=== PATIENT | female | born 1980 | race Caucasian/White ===

== ENCOUNTER 2024-09-26 10:40 | Observation (INO) | payer SELFPAY ==
[2024-09-26] VITALS (11 sets, daily range): BP systolic 92–168; BP diastolic 62–97; PULSE 65–130; RESP 15–20; TEMP 36.7–37.7; O2SAT 95–99; BMI 28.1; BMI 26.9
[2024-09-26 11:04] LABS: Glucose Urine UA Negative (Normal); Nitrate Urine Negative (Negative)
[2024-09-26 11:09] LABS: Add Urine Microscopic? YES; Universal Test for UA Present (0)
[2024-09-26 11:10] LABS: Specific Gravity, Urine 1.033 (1.005-1.030)
[2024-09-26] MEDS: diphenhydrAMINE 50 mg/mL SDV 1mL IVP (11:10)
[2024-09-26] MEDS: haloperidol inj 5 mg/mL INJ 1 mL IVP (11:13)
[2024-09-26 11:16] LABS: Hematocrit 53.9 % (36-47); Hemoglobin 18.40 g/dL (11.27-16.99); Mean Corpuscular HGB Conc 34.1 g/dL (30-55); Mean Corpuscular Hemoglobin 30.1 pg (27-33); Mean Corpuscular Volume 88.1 fl (85-98); Nucleated Red Blood Cells % 0 %; Platelet Count 259 10^3/cmm (157-399); Red Blood Count 6.12 10^6/uL (3.85-5.65); White Blood Count 16.78 10^3/uL (3.29-11.43)
--- NOTE | 2024-09-26 11:18 | ED_ITS ---
HPI - Nausea/Vomiting/Diarrhea 2 General: Chief complaint: Nausea/Vomiting/Diarrhea Stated complaint: nausea (4xdays) / hands went numb Time Seen by Provider: 09/26/24 11:01 History of Present Illness: HPI: Patient with history of frequent marijuana use, remote section, presenting to the department with complaint of nausea vomiting over the last 5 days. No fevers, sweats, chills. Patient states she has epigastric abdominal pain, lower abdominal pain also present mostly over the suprapubic region. The pain does not radiate to her back or chest. No UTI symptoms. Patient unable to manage symptoms at home so presented to the emergency department for control of her symptoms. Patient states that she had some carpal spasms as well that were bothersome to her just prior to arrival. REVIEW OF SYSTEMS: 10 systems reviewed and otherwise unrema rkable except for those noted in HPI. PHYSCIAL EXAM: Triage vital signs reviewed Gen: A&O NAD HEENT: NCAT, EOMI, not icteric. External ears normal. No rhinorrhea. Moist mucous membranes. Neck: Supple, full range of motion, no observable masses, No meningeal sign. Lungs: No Respiratory distress. CV: Tachycardic, no edema. Abdomen: Soft, nondistended, No rebound tenderness. Epigastric tenderness to palpation, mild nonspecific tenderness elsewhere, no CVA tenderness. MSK: No joint swelling, no redness. Skin: No rashes, petechiae, lesions. Normal color per patient. Neuro: Normal Gait, Grossly intact. Psych: Appropriate for situation. PROCEDURES: EKG: Rate: Tachycardic Rhythm: Sinus [place]: Normal variant Intervals: Normal Ischemia: No STEMI criteria Related Data Home Medications ?Medication ?Instructions ?Recorded ?Confirmed No Known Home Medications 09/26/24 0811/12 Allergies Allergy/AdvReac Type Severity Reaction Status Date / Time No Known Allergies Allergy Verified 09/26/24 10:48 Course 2 Vital Signs: Vital signs: Vital Signs Temperature 98.3 F 09/26/24 10:43 Pulse Rate 91 09/26/24 11:23 Respiratory Rate 20 H 09/26/24 10:43 Blood Pressure 151/97 09/26/24 10:43 Pulse Oximetry 95 09/26/24 11:23 Oxygen Delivery Me thod Room Air 09/26/24 11:23 MDM - Nausea/Vomiting/Diarrhea Medical Decision Making MEDICAL DECISION MAKING: Differential diagnoses considered but not limited to: Marijuana hyperemesis, abdominal migraine, pancreatitis, electrolyte derangement, intra-abdominal surgical or infectious emergency, urosepsis, diverticulitis, others. Vitals nonactionable. Given history, examination, and pretest risk factors, in this patient with a nonperitoneal physical exam, favor electrolyte derangement, hyperemesis, or pancreatitis at this time. Obtain screening labs. Resuscitating patient with 1 L normal saline to start and providing Haldol and Benadryl. Patient with profound lactic acidosis and leukocytosis. Replating with additional 2 L normal saline (3 L total). Additionally patient requires potassium repletion which is initiated in the emergency department. Patient will be admitted to the hospitalist for further evaluation and treatment. DISPO: Admit hospitalist Joao Landa MD Staff physician, [facility] Emergency Department [phone] Lab Data 09/26/24 11:05 09/26/24 11:05 Radiology Impressions Abdomen/Pelvis CT 09/26/24 11:21 IMPRESSION: No acute findings. T-shaped intrauterine device. Laboratory Results WBC 16.78 10^3/uL (3.29-11.43) H 09/26/24 11:05 RBC 6.12 10^6/uL (3.85-5.65) H 09/26/24 11:05 Hgb 18.40 g/dL (11.27-16.99) H 09/26/24 11:05 Hct 53.9 % (36-47) H 09/26/24 11:05 MCV 88.1 fl (85-98) 09/26/24 11:05 MCH 30.1 pg (27-33) 09/26/24 11:05 MCHC 34.1 g/dL (30-55) 09/26/24 11:05 RDW 13.0 % (12.1-15.1) 09/26/24 11:05 Plt Count 259 10^3/cmm (157-399) 09/26/24 11:05 MPV 11.2 fL (7.4-10.4) H 09/26/24 11:05 Neut % (Auto) 82.0 % 09/26/24 11:05 Lymph % (Auto) 11.0 % 09/26/24 11:05 [place] % (Auto) 6.3 % 09/26/24 11:05 Eos % (Auto) 0.0 % 09/26/24 11:05 Baso % (Auto) 0.2 % 09/26/24 11:05 Neut # (Auto) 13.78 10^3/uL (1.8-7.7) H 09/26/24 11:05 Lymph # (Auto) 1.8 10^3/uL (0.8-4.8) 09/26/24 11:05 [place] # (Auto) 1.1 10^3/uL (0.2-0.9) H 09/26/24 11:05 Eos # (Auto) 0.0 10^3/uL (0.0-0.8) 09/26/24 11:05 Baso # (Auto) 0.0 10^3/uL (0.0-0.1) 09/26/24 11:05 Nucleated RBC % (auto) 0 % 09/26/24 11:05 Nucleated RBCs # 0.0 /100WBC 09/26/24 11:05 Sodium 137 mmol/L (136-145) 09/26/24 11:05 Potassium 2.7 mmol/L (3.5-5.1) L* 09/26/24 11:05 Chloride 84 mmol/L (98-107) L 09/26/24 11:05 Carbon Dioxide 25 mmol/L (22-29) 09/26/24 11:05 Anion Gap 30.7 (5-19) H 09/26/24 11:05 BUN 19 mg/dL (6-20) 09/26/24 11:05 Creatinine 1.0 mg/dL (0.5-0.9) H 09/26/24 11:05 GFR Calculation 60.8 mL/min (90-130) L 09/26/24 11:05 Glucose 141 mg/dL (65-115) H 09/26/24 11:05 Calculated Osmolality 289 mOsm/kg (285-295) 09/26/24 11:05 Lactic Acid 7.8 mmol/L (0.5-2.2) H* 09/26/24 11:05 Calcium 10.5 mg/dL (8.5-10.5) 09/26/24 11:05 Magnesium 3.0 mg/dL (1.7-2.3) H 09/26/24 11:05 Total Bilirubin 1.8 mg/dL (0.15-1.2) H 09/26/24 11:05 AST 55 U/L (0-32) H 09/26/24 11:05 ALT 57 U/L (0-33) H 09/26/24 11:05 Alkaline Phosphatase 103 U/L (35-105) 09/26/24 11:05 Total Protein 9.5 g/dL (6.6-8.7) H 09/26/24 11:05 Albumin 5.6 g/dL (3.5-5.2) H 09/26/24 11:05 Globulin 3.9 g/dL (1.3-4.6) 09/26/24 11:05 Lipase 32 U/L (13-60) 09/26/24 11:05 HCG, Qual Negative (Negative) 09/26/24 10:53 Urine Color [place] (Yellow) A 09/26/24 10:53 Urine Appearance Clear (CLEAR) 09/26/24 10:53 Urine pH 7.5 (5-7) 09/26/24 10:53 Ur Specific [place] 1.033 (1.005-1.030) H 09/26/24 10:53 Urine Protein 4+ (Negative) A 09/26/24 10:53 Urine Glucose (UA) Negative (Normal) 09/26/24 10:53 Urine Ketones 2+ (Negative) H 09/26/24 10:53 Urine Blood Trace (Negative) A 09/26/24 10:53 Urine Nitrate Negative (Negative) 09/26/24 10:53 Urine Bilirubin 1+ (Negative) H 09/26/24 10:53 Urine Urobilinogen 1.0 mg/dL (Negative) 09/26/24 10:53 Ur Leukocyte Esterase Trace (Negative) A 09/26/24 10:53 Urine RBC 21-50 /hpf (0-2) H 09/26/24 10:53 Urine WBC 0-5 /hpf (0-5) 09/26/24 10:53 Ur Squamous Epith Cells 0-5 /hpf (0-5) 09/26/24 10:53 Amorphous Sediment Not Reportable 09/26/24 10:53 Urine Bacteria None seen /hpf (NONE) 09/26/24 10:53 Hyaline Casts 2.46 /lpf 09/26/24 10:53 Urine Opiates Screen Negative ng/mL (Negative) 09/26/24 10:53 Ur Barbiturates Screen Negative ng/mL (Negative) 09/26/24 10:53 Ur Phencyclidine Scrn Negative ng/mL (Negative) 09/26/24 10:53 Ur Amphetamines Screen Negative ng/mL (Negative) 09/26/24 10:53 U Benzodiazepines Scrn Negative ng/mL (Negative) 09/26/24 10:53 Urine Cocaine Screen Negative ng/mL (Negative) 09/26/24 10:53 U Marijuana (THC) Screen Positive ng/mL (Negative) H 09/26/24 10:53 All radiology interpretation(s) finalized by discharge Discharge Plan Discharge Patient Disposition: Placed in Observation Clinical Impression: Acute hypokalemia, Dehydration Discharge Diet: Advance as tolerated Discharge Activity: Resume usual activity Coding Level of Care Code ED Domestic Helper for Rajinder Acosta
[2024-09-26 11:20] LABS: HCG Qualitative Urine. Negative (Negative)
--- NOTE | 2024-09-26 11:21 | CTR_ITS ---
PROCEDURE INFORMATION: Exam: CT Abdomen And Pelvis With Contrast Exam date and time: 09/26/2024 11:29 AM Age: 44 years old Clinical indication: Abdominal pain; Prior surgery; Surgery date: 6+ months; Surgery type: Csection x 1; Additional info: N/v; Constipation; Diffuse lower abdomen pain TECHNIQUE: Imaging protocol: Computed tomography of the abdomen and pelvis with contrast. Radiation optimization: All CT scans at this facility use at least one of these dose optimization techniques: automated exposure control; mA and/or kV adjustment per patient size (includes targeted exams where dose is matched to clinical indication); or iterative reconstruction. Contrast material: [id number]; Contrast volume: 100 ml; Contrast route: INTRAVENOUS (IV); COMPARISON: No relevant prior studies available. RADIATION DOSE METRICS: Total DLP (mGy-cm): 594.63 FINDINGS: Liver: Normal. No mass. Gallbladder and biliary ducts: Normal. No calcified stones. No ductal dilation. Pancreas: Normal. No ductal dilation. Spleen: Normal. No splenomegaly. Adrenal glands: Normal. No mass. Kidneys and ureters: Normal. No hydronephrosis. Stomach and bowel: Colonic diverticulosis on the right without diverticulitis. Appendix: No evidence of appendicitis. Intraperitoneal space: Unremarkable. No free air. No significant fluid collection. Vasculature: Unremarkable. No abdominal aortic aneurysm. Lymph nodes: Unremarkable. No enlarged lymph nodes. Urinary bladder: Unremarkable as visualized. Reproductive: T-shaped intrauterine device. Bones/joints: Unremarkable. No acute fracture. Soft tissues: Unremarkable. CT/CT abdomen pelvis w con* [id number] IMPRESSION: No acute findings. T-shaped intrauterine device.
[2024-09-26 11:32] LABS: Alanine Aminotransferase 57 U/L (0-33); Albumin Level 5.6 g/dL (3.5-5.2); Alkaline Phosphatase 103 U/L (35-105); Anion Gap 30.7 (5-19); Aspartate Amino Transferase 55 U/L (0-32); Blood Urea Nitrogen 19 mg/dL (6-20); Calcium 10.5 mg/dL (8.5-10.5); Carbon Dioxide 25 mmol/L (22-29); Chloride 84 mmol/L (98-107); Creatinine Clr Calc Pharmacy 80.5451; Globulin 3.9 g/dL (1.3-4.6); Glucose 141 mg/dL (65-115); Lipase 32 U/L (13-60); Osmolality Calculated 289 mOsm/kg (285-295); Sodium 137 mmol/L (136-145); Total Protein 9.5 g/dL (6.6-8.7)
[2024-09-26 11:35] LABS: PCP Screen Urine Negative (Negative)
[2024-09-26 11:41] LABS: Potassium 2.7 mmol/L (3.5-5.1)
[2024-09-26 11:42] LABS: Lactic Sepsis W/Reflex 7.8 mmol/L (0.5-2.2)
[2024-09-26] MEDS: iohexol 350 mg/mL 500 mL Btl (per mL) IV (11:42)
--- NOTE | 2024-09-26 11:58 | PC.NURSE ---
heparin administration delayed D/T PT discussing with possibly leaving AMA. Physician notified.
--- NOTE | 2024-09-26 12:05 | ECG_ITS ---
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 Measurements Intervals [place] Rate: 78 P: 56 GA: 135 QRS: 14 QRSD: 92 T: 33 QT: 404 QTc: 461 Interpretive Statements SINUS RHYTHM POSSIBLE RIGHT ATRIAL ENLARGEMENT [0.25mV P-WAVE] POSSIBLE LEFT ATRIAL ENLARGEMENT [-0.1mV P-WAVE IN V1/V2] INCOMPLETE RIGHT BUNDLE BRANCH BLOCK [90+ ms QRS DURATION, TERMINAL R IN V1/V2, 40+ ms S IN I/aVL/V4/V5/V6] NONSPECIFIC ST & T-WAVE ABNORMALITY No previous ECG available for comparison Electronically Signed On 09-29-2024 08:20:52 CDT by Bandar Still M.D. [email or web address] [id number]
[2024-09-26 12:34] LABS: Magnesium 3.0 mg/dL (1.7-2.3)
[2024-09-26] MEDS: potassium chloride premix 100 ML 50 MEQ IV ×4 (12:42→20:47)
[2024-09-26 12:59] LABS: Reflex Lactate Order REFLEX LACTIC ORDERD
--- NOTE | 2024-09-26 13:09 | P.HP_ITS ---
Providers/Chief Complaint 2 Chief Complaint: nausea (4xdays) / hands went numb History of Present Illness Anayeli Benson is a 44 year old female with PMH of hyperemesis presents to the ER today because of ongoing nausea and vomiting since Saturday night. Episodes have been increasing last 2 days. Associated with abdominal cramps, diarrhea and weakness. Abdominal pain is more so in the left lower quadrant and periumbilical, colicky in nature. She denies eating anything new or outside. Patient does use marijuana daily. Patient's daughter also having similar symptoms. In the ER she was found to be tachycardic, hypotensive on presentation but blood pressures and heart rate improved after 2 L of fluid bolus. She was found to have a potassium of 2.7 with lactate of 7.8. Review of Systems 2 General: Reports: 10 or more systems reviewed and unremarkable except in HPI and below Const: Denies: fever(s), chills, body aches, change in appetite, change in weight, malaise, night sweats, diaphoresis, change in sleep pattern, daytime sleepiness or snoring Eyes: Denies: change in vision, blurry vision, photophobia, eye discomfort or eye discharge ENMT: Denies: throat pain, enlarged tonsils, hoarseness, mouth pain, oral sores, dry mouth, tinnitus, nasal congestion or post nasal drip Card: Denies: chest pain, palpitations, irregular heart rhythm, edema, swelling of feet/ankles, lightheadedness, syncope, pre-syncope, dyspnea on exertion, orthopnea, leg pain with exertion or acrocyanosis Resp: Denies: dyspnea, productive cough, non-productive cough, wheezing, stridor, pain on inspiration, change in phlegm color, hemoptysis or chest congestion GI: Denies: abdominal pain, nausea, vomiting, hematemesis, coffee ground emesis, dysphagia, heartburn, diarrhea, constipation, bloating, GI cramping, change in bowel habits, pain on defecation, hematochezia or melena : Denies: flank pain, dysuria, urinary frequency, urinary urgency, urinary hesitancy, nocturia or hematuria Musc: Denies: neck pain, back pain, extremity pain, joint pain, joint swelling, joint redness, joint stiffness or limited range of motion Neuro: Denies: headache(s), numbness in extremities, weakness in extremities, sensory changes, lack of coordination, difficulty walking, frequent falls, dizziness, vertigo, confusion, Slurred speech present, difficulty communicating thoughts or seizure-like activity Psych: Denies: anxiety, depression, mood swings, panic attacks, hopelessness or irritability Endo: Denies: polyuria, polydipsia, tired all the time, cold intolerance, excessive sweating, flushing or heat intolerance Jn/Lymph: Denies: easy bruising or easy bleeding All/Imm: Denies: tongue swelling, facial swelling or acute wheezing Medications/Allergies Home Medications ?Medication ?Instructions ?Recorded ?Confirmed ?Last Taken ?Type No Known Home Medications 09/26/2411/12 Unknown History Allergies Allergy/AdvReac Type Severity Reaction Status Date / Time No Known Allergies Allergy Verified 09/26/24 10:48 PFSH Acute 2 PFSH: Medical History (Updated 09/26/24 @ 13:36 by Petar Castro MD) Marijuana dependence Hyperemesis Social History (Updated 09/26/24 @ 13:37 by Petar Castro MD) Alcohol intake: former Substance/Drug Use: never Caregiver/support person: Yes Lives independently: Yes Household members: family Housing: House Vitals/I&O/Wt Last Vital Signs Temp 98.3 F 09/26/24 10:43 Pulse 91 09/26/24 11:23 Resp 20 H 09/26/24 10:43 BP 151/97 09/26/24 10:43 Pulse Ox 95 09/26/24 11:23 O2 Del Method Room Air 09/26/24 11:23 09/25/24 09/26/24 09/26/24 22:59 06:59 14:59 Intake Total 6.6 / 2066.6 Balance 6.6 / 2066.6 Weight last 48 hrs Weight 81.647 kg Physical Exam 2 Narrative: General: AO x 3, in distress or other nausea, dehydrated HEENT: PERRLA, pupils bilaterally equal and reactive Chest: Normal vesicular breath sounds, no added sounds, equal good air entry bilaterally CVS: S1-S2 regular, no murmurs, no tachycardia, no gallops, no rubs Abdomen: Soft, generalized mild tenderness, no organomegaly, bowel sounds present but sluggish Neuro: No focal deficits, no facial deformity, AO x3, power 5/5 in all limbs Data 09/26/24 11:05 09/26/24 11:05 Other Labs: Radiology Impressions Abdomen/Pelvis CT 09/26/24 11:21 IMPRESSION: No acute findings. T-shaped intrauterine device. Laboratory Results WBC 16.78 10^3/uL (3.29-11.43) H 09/26/24 11:05 RBC 6.12 10^6/uL (3.85-5.65) H 09/26/24 11:05 Hgb 18.40 g/dL (11.27-16.99) H 09/26/24 11:05 Hct 53.9 % (36-47) H 09/26/24 11:05 MCV 88.1 fl (85-98) 09/26/24 11:05 MCH 30.1 pg (27-33) 09/26/24 11:05 MCHC 34.1 g/dL (30-55) 09/26/24 11:05 RDW 13.0 % (12.1-15.1) 09/26/24 11:05 Plt Count 259 10^3/cmm (157-399) 09/26/24 11:05 MPV 11.2 fL (7.4-10.4) H 09/26/24 11:05 Neut % (Auto) 82.0 % 09/26/24 11:05 Lymph % (Auto) 11.0 % 09/26/24 11:05 [place] % (Auto) 6.3 % 09/26/24 11:05 Eos % (Auto) 0.0 % 09/26/24 11:05 Baso % (Auto) 0.2 % 09/26/24 11:05 Neut # (Auto) 13.78 10^3/uL (1.8-7.7) H 09/26/24 11:05 Lymph # (Auto) 1.8 10^3/uL (0.8-4.8) 09/26/24 11:05 [place] # (Auto) 1.1 10^3/uL (0.2-0.9) H 09/26/24 11:05 Eos # (Auto) 0.0 10^3/uL (0.0-0.8) 09/26/24 11:05 Baso # (Auto) 0.0 10^3/uL (0.0-0.1) 09/26/24 11:05 Nucleated RBC % (auto) 0 % 09/26/24 11:05 Nucleated RBCs # 0.0 /100WBC 09/26/24 11:05 Sodium 137 mmol/L (136-145) 09/26/24 11:05 Potassium 2.7 mmol/L (3.5-5.1) L* 09/26/24 11:05 Chloride 84 mmol/L (98-107) L 09/26/24 11:05 Carbon Dioxide 25 mmol/L (22-29) 09/26/24 11:05 Anion Gap 30.7 (5-19) H 09/26/24 11:05 BUN 19 mg/dL (6-20) 09/26/24 11:05 Creatinine 1.0 mg/dL (0.5-0.9) H 09/26/24 11:05 GFR Calculation 60.8 mL/min (90-130) L 09/26/24 11:05 Glucose 141 mg/dL (65-115) H 09/26/24 11:05 Calculated Osmolality 289 mOsm/kg (285-295) 09/26/24 11:05 Lactic Acid 7.8 mmol/L (0.5-2.2) H* 09/26/24 11:05 Calcium 10.5 mg/dL (8.5-10.5) 09/26/24 11:05 Magnesium 3.0 mg/dL (1.7-2.3) H 09/26/24 11:05 Total Bilirubin 1.8 mg/dL (0.15-1.2) H 09/26/24 11:05 AST 55 U/L (0-32) H 09/26/24 11:05 ALT 57 U/L (0-33) H 09/26/24 11:05 Alkaline Phosphatase 103 U/L (35-105) 09/26/24 11:05 Total Protein 9.5 g/dL (6.6-8.7) H 09/26/24 11:05 Albumin 5.6 g/dL (3.5-5.2) H 09/26/24 11:05 Globulin 3.9 g/dL (1.3-4.6) 09/26/24 11:05 Lipase 32 U/L (13-60) 09/26/24 11:05 HCG, Qual Negative (Negative) 09/26/24 10:53 Urine Color [place] (Yellow) A 09/26/24 10:53 Urine Appearance Clear (CLEAR) 09/26/24 10:53 Urine pH 7.5 (5-7) 09/26/24 10:53 Ur Specific [place] 1.033 (1.005-1.030) H 09/26/24 10:53 Urine Protein 4+ (Negative) A 09/26/24 10:53 Urine Glucose (UA) Negative (Normal) 09/26/24 10:53 Urine Ketones 2+ (Negative) H 09/26/24 10:53 Urine Blood Trace (Negative) A 09/26/24 10:53 Urine Nitrate Negative (Negative) 09/26/24 10:53 Urine Bilirubin 1+ (Negative) H 09/26/24 10:53 Urine Urobilinogen 1.0 mg/dL (Negative) 09/26/24 10:53 Ur Leukocyte Esterase Trace (Negative) A 09/26/24 10:53 Urine RBC 21-50 /hpf (0-2) H 09/26/24 10:53 Urine WBC 0-5 /hpf (0-5) 09/26/24 10:53 Ur Squamous Epith Cells 0-5 /hpf (0-5) 09/26/24 10:53 Amorphous Sediment Not Reportable 09/26/24 10:53 Urine Bacteria None seen /hpf (NONE) 09/26/24 10:53 Hyaline Casts 2.46 /lpf 09/26/24 10:53 Urine Opiates Screen Negative ng/mL (Negative) 09/26/24 10:53 Ur Barbiturates Screen Negative ng/mL (Negative) 09/26/24 10:53 Ur Phencyclidine Scrn Negative ng/mL (Negative) 09/26/24 10:53 Ur Amphetamines Screen Negative ng/mL (Negative) 09/26/24 10:53 U Benzodiazepines Scrn Negative ng/mL (Negative) 09/26/24 10:53 Urine Cocaine Screen Negative ng/mL (Negative) 09/26/24 10:53 U Marijuana (THC) Screen Positive ng/mL (Negative) H 09/26/24 10:53 A&P Assessment and plan 1. Nausea and vomiting: Patient does have history of hyperemesis in the past. Could be marijuana induced hyperemesis currently. Cannot rule out viral syndrome. Lipase within normal limits. Appreciate CT abdomen pelvis. No concern for diverticulitis/colitis. Zofran as needed, promethazine as needed. Scopolamine patch. Clear liquid diet. Protonix 40 mg twice daily. 2. Dehydration: Most likely due to poor oral intake, extensive nausea and vomiting. Received 2 L IV fluid bolus in ER. Continue with NS with 20% potassium at 100 cc/h for now. 3. Acute hypokalemia: Currently 2.7. Ordered 40 minutes of potassium to 6 hours in ER. Monitor potassium every 6 hours. 4. Acute kidney injury: Insetting of dehydration. IV fluid as above. Monitor BMP every day for now. 5. Elevated lactic acid level: Appreciate CT on pelvis with contrast. No concern for mesenteric ischemia. Most likely in setting of dehydration. Repeat in AM. 6. Transaminitis: Could be in setting of extensive nausea and vomiting. Check hepatitis panel, HIV. Monitor daily. 7. Leukocytosis: Most likely in setting of dehydration/reactive. Less likely infective. Check stool studies. Hold off on IV antibiotics for now. 8. Polycythemia: 9. Marijuana dependence: Plan: Full code Clear liquid diet Protonix OPD prophylaxis Lovenox for DVT prophylaxis. PDMP PDMP Reviewed: Not Reviewed Attestations 2 Medical Necessity Statement*: Admit under observation for management of poor oral intake leading to dehydration, polycythemia, severe hypokalemia in a patient with nausea and vomiting Diagnoses Nausea and vomiting R11.2 Dehydration E86.0 Acute hypokalemia E87.6 Acute kidney injury N17.9 Elevated lactic acid level R79.89 Transaminitis R74.01 Leukocytosis D72.829 Polycythemia D75.1 Marijuana dependence F12.20
[2024-09-26 13:54] LABS: Procalcitonin 0.04 ng/mL (0-0.5)
[2024-09-26] MEDS: sodium chlor 0.9% + KCl 20 mEq 20 MEQ/1,000 ML BAG 100 MEQ IV (14:00)
[2024-09-26] MEDS: pantoprazole 40 mg SDV IVP (14:00)
[2024-09-26 14:07] LABS: Hepatitis A Antibody IgM Non-Reactive (Nonreactive); Hepatitis B Surface Antigen Non-Reactive (Nonreactive)
[2024-09-26 14:53] LABS: Lactic Acid level (Lactate) 2.4 mmol/L (0.5-2.2)
[2024-09-26 15:13] LABS: Estmated Average Glucose 100; Hemoglobin A1C 5.1 % (4.0-6.0)
[2024-09-26 15:18] LABS: HIV 1 & 2 Antigen Non-Reactive (Non-Reactiv)
[2024-09-26 15:25] LABS: Iron 76 ug/dL (37-145); Thyroid Stimulating Hormone 0.68 uIU/mL (0.27-4.20); Total Iron Binding Capacity 460 mcg/dl; Unsaturated Iron Binding 384 ug/dL (112-347); Vitamin B12 1999 pg/mL (232-1245)
[2024-09-26] MEDS: promethazine 25 mg/mL SDV 1 mL 12.5 MG IM (17:39)
[2024-09-26 18:44] LABS: Potassium 3.4 mmol/L (3.5-5.1)
[2024-09-26] MEDS: ondansetron 2 mg/ML SDV 2 mL 4 MG IVP (21:39)
[2024-09-26] MEDS: morphine 4 mg/mL SDV 1 mL 2 MG IVP (21:39)
[2024-09-27] VITALS (7 sets, daily range): BP systolic 159–167; BP diastolic 73–104; PULSE 60–102; RESP 16–17; TEMP 36.7–37.2; O2SAT 95–98
[2024-09-27] MEDS: sodium chlor 0.9% + KCl 20 mEq 20 MEQ/1,000 ML BAG 100 MEQ IV ×2 (00:14→14:13)
[2024-09-27] MEDS: pantoprazole 40 mg SDV IVP ×2 (00:15→14:11)
[2024-09-27] MEDS: promethazine 25 mg/mL SDV 1 mL 12.5 MG IM ×3 (00:21→17:09)
[2024-09-27] MEDS: ondansetron 2 mg/ML SDV 2 mL 4 MG IVP ×3 (02:17→12:47)
[2024-09-27] MEDS: morphine 4 mg/mL SDV 1 mL 2 MG IVP (02:18)
[2024-09-27 04:52] LABS: Hematocrit 44.2 % (36-47); Hemoglobin 15.10 g/dL (11.27-16.99); Mean Corpuscular HGB Conc 34.2 g/dL (30-55); Mean Corpuscular Hemoglobin 30.7 pg (27-33); Mean Corpuscular Volume 89.8 fl (85-98); Nucleated Red Blood Cells % 0 %; Platelet Count 163 10^3/cmm (157-399); Red Blood Count 4.92 10^6/uL (3.85-5.65); White Blood Count 12.11 10^3/uL (3.29-11.43)
[2024-09-27 05:08] LABS: Lactic Sepsis W/Reflex 0.7 mmol/L (0.5-2.2)
[2024-09-27 05:12] LABS: Alanine Aminotransferase 37 U/L (0-33); Albumin Level 4.4 g/dL (3.5-5.2); Alkaline Phosphatase 72 U/L (35-105); Anion Gap 11.2 (5-19); Aspartate Amino Transferase 29 U/L (0-32); Blood Urea Nitrogen 8 mg/dL (6-20); Calcium 8.7 mg/dL (8.5-10.5); Carbon Dioxide 28 mmol/L (22-29); Chloride 100 mmol/L (98-107); Cholesterol 146 mg/dL (0-200); Creatinine Clr Calc Pharmacy 157.6897; Globulin 2.2 g/dL (1.3-4.6); Glucose 114 mg/dL (65-115); HDL Cholesterol 65 mg/dL (60-100); Magnesium 2.4 mg/dL (1.7-2.3); Osmolality Calculated 281 mOsm/kg (285-295); Potassium 3.2 mmol/L (3.5-5.1); Sodium 136 mmol/L (136-145); Total Protein 6.6 g/dL (6.6-8.7); Triglycerides 81 mg/dL (0-150)
[2024-09-27 05:19] LABS: Procalcitonin 0.04 ng/mL (0-0.5)
[2024-09-27] MEDS: potassium phosphate (mEq K) 40 MEQ in sodium chloride 0.9% (100 ml) 100 ML 25 MEQ IV (14:11)
--- NOTE | 2024-09-27 19:48 | PC.NURSE ---
LEA Pt. came to nurses station at approx. 1930 stating that she wanted to leave. Patient stated that her mother was here to get her and that she needed to go. Upon further discussion, patient states My recently had a lot of teeth pulled and my mother is terminally ill. She is watching my kids, one of which is a baby, and I really need to go and help them. I don't get any sleep here and I'm at the end of the johnson and I'm anxious. I held down some ice cream this afternoon and I'm feeling better. I can't stay another night. Deirdre, RN spoke with Dr. Castro regarding patient wanting to AMA. Dr. Castro discussed with Deirdre and this nurse that patient has not went long enough without vomiting and has not progressed in her diet enough for patient to be discharged at this time. Further studies are also ordered for 09/28/24. Pt. states that she dislikes the hospital food and will not eat while she is here. Pt. voices understanding that the physician is not discharging her at this time, voices understanding of the concern for her diet not being advanced enough to discharge home and the risk for patient to continue vomiting and decline without further care. Pt. voices understanding to return to the ER if she continues to vomit or has other health concerns. LEA paper signed at 1931 with this nurse as witness. supervisor slitting and shipping notified by this nurse of patient leaving AMA. IV access removed during day shift as IV's had went bad and patient was awaiting US IV. Pt. left at 193 to personal vehicle with family with all personal belongings.
--- NOTE | 2024-10-06 08:12 | P.DS_ITS ---
Discharge Providers Date of Admission: 09/26/24 12:33 Date of Discharge: October 06, 2024 Attending Provider at Admission: Petar Castro MD Attending Provider at Discharge: Petar Castro MD Diagnoses at Discharge Discharge Diagnosis 1. Nausea and vomitin. Dehydration: 3. Acute hypokalemia: 4. Acute kidney injury: 5. Elevated lactic acid level: 6. Transaminitis: 7. Leukocytosis: 8. Polycythemia: 9. Marijuana dependence: Reason for Visit Reason for Visit: nausea (4xdays) / hands went numb Hospital Course Hospital Course Anayeli Benson is a 44 year old female with PMH of hyperemesis presents to the ER today because of ongoing nausea and vomiting since Saturday night. Episodes have been increasing last 2 days. Associated with abdominal cramps, diarrhea and weakness. Abdominal pain is more so in the left lower quadrant and periumbilical, colicky in nature. She denies eating anything new or outside. Patient does use marijuana daily. Patient's daughter also having similar symptoms. In the ER she was found to be tachycardic, hypotensive on presentation but blood pressures and heart rate improved after 2 L of fluid bolus. She was found to have a potassium of 2.7 with lactate of 7.8. Patient was admitted to the hospital further evaluation and management. She was started on conservative treatment with clear liquid diet, PPIs along with aggressive hydration and replacement of potassium. Potassium levels improved but continued to remain on the lower side. Patient was able to tolerate liquid diet with less nausea. Patient would have needed further monitoring with hospitalization given dehydration and persistent hypokalemia though even after multiple counseling she decided to leave AGAINST MEDICAL ADVICE. Physical Exam Narrative: General: AO x 3, in distress or other nausea, dehydrated HEENT: PERRLA, pupils bilaterally equal and reactive Chest: Normal vesicular breath sounds, no added sounds, equal good air entry bilaterally CVS: S1-S2 regular, no murmurs, no tachycardia, no gallops, no rubs Abdomen: Soft, generalized mild tenderness, no organomegaly, bowel sounds present but sluggish Neuro: No focal deficits, no facial deformity, AO x3, power 5/5 in all limbs Discharge Data Studies Completed and Pending Completed Studies During Hospitalization Category Date Time Status CT abdomen pelvis w con* [id number] Stat Cat Scan 09/26/24 11:21 Completed Radiology Impressions Abdomen/Pelvis CT 09/26/24 11:21 IMPRESSION: No acute findings. T-shaped intrauterine device. Laboratory Results WBC 12.11 10^3/uL (3.29-11.43) H 09/27/24 04:36 RBC 4.92 10^6/uL (3.85-5.65) 09/27/24 04:36 Hgb 15.10 g/dL (11.27-16.99) 09/27/24 04:36 Hct 44.2 % (36-47) 09/27/24 04:36 MCV 89.8 fl (85-98) 09/27/24 04:36 MCH 30.7 pg (27-33) 09/27/24 04:36 MCHC 34.2 g/dL (30-55) 09/27/24 04:36 RDW 12.9 % (12.1-15.1) 09/27/24 04:36 Plt Count 163 10^3/cmm (157-399) D 09/27/24 04:36 MPV 11.2 fL (7.4-10.4) H 09/27/24 04:36 Neut % (Auto) 74.2 % 09/27/24 04:36 Lymph % (Auto) 16.7 % 09/27/24 04:36 Dickson % (Auto) 8.2 % 09/27/24 04:36 Eos % (Auto) 0.2 % 09/27/24 04:36 Baso % (Auto) 0.2 % 09/27/24 04:36 Neut # (Auto) 8.99 10^3/uL (1.8-7.7) H 09/27/24 04:36 Lymph # (Auto) 2.0 10^3/uL (0.8-4.8) 09/27/24 04:36 Dickson # (Auto) 1.0 10^3/uL (0.2-0.9) H 09/27/24 04:36 Eos # (Auto) 0.0 10^3/uL (0.0-0.8) 09/27/24 04:36 Baso # (Auto) 0.0 10^3/uL (0.0-0.1) 09/27/24 04:36 Nucleated RBC % (auto) 0 % 09/27/24 04:36 Nucleated RBCs # 0.0 /100WBC 09/27/24 04:36 Sodium 136 mmol/L (136-145) 09/27/24 04:36 Potassium 3.2 mmol/L (3.5-5.1) L 09/27/24 04:36 Chloride 100 mmol/L (98-107) 09/27/24 04:36 Carbon Dioxide 28 mmol/L (22-29) 09/27/24 04:36 Anion Gap 11.2 (5-19) 09/27/24 04:36 BUN 8 mg/dL (6-20) 09/27/24 04:36 Creatinine 0.5 mg/dL (0.5-0.9) 09/27/24 04:36 GFR Calculation 135.3 mL/min (90-130) H 09/27/24 04:36 Glucose 114 mg/dL (65-115) 09/27/24 04:36 Estimat Average Glucose 100 09/26/24 11:05 Hemoglobin A1c 5.1 % (4.0-6.0) 09/26/24 11:05 Calculated Osmolality 281 mOsm/kg (285-295) L 09/27/24 04:36 Lactic Acid 0.7 mmol/L (0.5-2.2) 09/27/24 04:36 Lactic Acid (Sepsis) 2.4 mmol/L (0.5-2.2) H 09/26/24 14:27 Calcium 8.7 mg/dL (8.5-10.5) 09/27/24 04:36 Phosphorus 2.2 mg/dL (2.5-4.5) L 09/27/24 04:36 Magnesium 2.4 mg/dL (1.7-2.3) H 09/27/24 04:36 Iron 76 ug/dL (37-145) 09/26/24 11:05 TIBC 460 mcg/dl 09/26/24 11:05 % Saturation 16.5 % (20-50) L 09/26/24 11:05 Unsat Iron Binding 384 ug/dL (112-347) H 09/26/24 11:05 Total Bilirubin 1.4 mg/dL (0.15-1.2) H 09/27/24 04:36 AST 29 U/L (0-32) 09/27/24 04:36 ALT 37 U/L (0-33) H 09/27/24 04:36 Alkaline Phosphatase 72 U/L (35-105) 09/27/24 04:36 Total Protein 6.6 g/dL (6.6-8.7) D 09/27/24 04:36 Albumin 4.4 g/dL (3.5-5.2) 09/27/24 04:36 Globulin 2.2 g/dL (1.3-4.6) 09/27/24 04:36 Triglycerides 81 mg/dL (0-150) 09/27/24 04:36 Cholesterol 146 mg/dL (0-200) 09/27/24 04:36 LDL Cholesterol, Calc 65 mg/dL (50-129) 09/27/24 04:36 HDL Cholesterol 65 mg/dL (60-100) 09/27/24 04:36 LDL/HDL Ratio 1.00 RATIO (0.00-3.22) 09/27/24 04:36 Cholesterol/HDL Ratio 2.25 mg/dL (0.0-4.40) 09/27/24 04:36 Lipase 32 U/L (13-60) 09/26/24 11:05 Vitamin B12 1999 pg/mL (232-1245) H 09/26/24 11:05 Folate > 20.0 ng/mL (4.8-37.3) 09/27/24 04:36 Procalcitonin 0.04 ng/mL (0-0.5) 09/27/24 04:36 TSH 0.68 uIU/mL (0.27-4.20) 09/26/24 11:05 HCG, Qual Negative (Negative) 09/26/24 10:53 Urine Color Dimmit (Yellow) A 09/26/24 10:53 Urine Appearance Clear (CLEAR) 09/26/24 10:53 Urine pH 7.5 (5-7) 09/26/24 10:53 Ur Specific [place] 1.033 (1.005-1.030) H 09/26/24 10:53 Urine Protein 4+ (Negative) A 09/26/24 10:53 Urine Glucose (UA) Negative (Normal) 09/26/24 10:53 Urine Ketones 2+ (Negative) H 09/26/24 10:53 Urine Blood Trace (Negative) A 09/26/24 10:53 Urine Nitrate Negative (Negative) 09/26/24 10:53 Urine Bilirubin 1+ (Negative) H 09/26/24 10:53 Urine Urobilinogen 1.0 mg/dL (Negative) 09/26/24 10:53 Ur Leukocyte Esterase Trace (Negative) A 09/26/24 10:53 Urine RBC 21-50 /hpf (0-2) H 09/26/24 10:53 Urine WBC 0-5 /hpf (0-5) 09/26/24 10:53 Ur Squamous Epith Cells 0-5 /hpf (0-5) 09/26/24 10:53 Amorphous Sediment Not Reportable 09/26/24 10:53 Urine Bacteria None seen /hpf (NONE) 09/26/24 10:53 Hyaline Casts 2.46 /lpf 09/26/24 10:53 Urine Opiates Screen Negative ng/mL (Negative) 09/26/24 10:53 Ur Barbiturates Screen Negative ng/mL (Negative) 09/26/24 10:53 Ur Phencyclidine Scrn Negative ng/mL (Negative) 09/26/24 10:53 Ur Amphetamines Screen Negative ng/mL (Negative) 09/26/24 10:53 U Benzodiazepines Scrn Negative ng/mL (Negative) 09/26/24 10:53 Urine Cocaine Screen Negative ng/mL (Negative) 09/26/24 10:53 U Marijuana (THC) Screen Positive ng/mL (Negative) H 09/26/24 10:53 Hepatitis A IgM Ab Non-reactive (Nonreactive) 09/26/24 11:05 Hep Bs Antigen Non-reactive (Nonreactive) 09/26/24 11:05 Hep Bs Antibody < 3.5 (11.5-1000) L 09/26/24 11:05 Hep B Core Total Ab Non-reactive (Nonreactive) 09/26/24 11:05 Hepatitis C Antibody Non-reactive (Nonreactive) 09/26/24 11:05 HIV 1&2 Ab & HIV 1 Ag Non-reactive (Non-Reactiv) 09/26/24 11:05 HIV 1&2 Antibody Non-reactive (Non-Reactiv) 09/26/24 11:05 Vitals Last Vital Signs Temp 98.2 F 09/27/24 15:34 Pulse 74 09/27/24 15:34 Resp 16 09/27/24 15:34 BP 161/100 09/27/24 15:34 Pulse Ox 95 09/27/24 15:34 O2 Del Method Room Air 09/27/24 15:34 Discharge Plan Discharge Patient Disposition: Left Against Medical Advice Condition: Stable Prescriptions: No Action No Known Home Medications Discharge Diet: Advance as tolerated Discharge Activity: Resume usual activity Discharge Attestations Time Spent in Discharge Care*: greater than 30 min Specific Discharge Activities: educating patient, educating and/or supporting family/caregiver, discussing with pcp/other providers, discussing with registered nurse hh case manager/social workers/dc planners, documenting/other paperwork and evaluating patient/reviewing data Status at Discharge: Cognitive status at discharge: cognitively intact , Behavioral status at discharge: cooperative , Functional status at discharge: independent ambulation , Overall status at discharge: patient is not back to baseline Quality Metrics Clinical Quality Measures [ No reported AMI, CVA or VTE this stay] Coding Level of Care Code 02839 Total time (in minutes) for Discharge: 65 Diagnoses Nausea and vomiting R11.2 Dehydration E86.0 Acute hypokalemia E87.6 Acute kidney injury N17.9 Elevated lactic acid level R79.89 Transaminitis R74.01 Leukocytosis D72.829 Polycythemia D75.1 Marijuana dependence F12.20
== END 2024-09-27 19:32 | disposition left against medical advice (07) ==
LOC: ER 12:39 → MEDSURG 16:35
PROVIDERS: Admitting Provider Student in an Organized Health Care Education/Training Program; Emergency Provider General Practice; Visit Provider Student in an Organized Health Care Education/Training Program
DX: R11.2 Nausea with vomiting, unspecified (principal); E86.0 Dehydration; E87.6 Hypokalemia; N17.9 Acute kidney failure, unspecified; R79.89 Other specified abnormal findings of blood chemistry; R74.01 Elevation of levels of liver transaminase levels; D72.829 Elevated white blood cell count, unspecified; D75.1 Secondary polycythemia; F12.20 Cannabis dependence, uncomplicated; Z53.29 Procedure and treatment not carried out because of patient's decision for other reasons
CPT/HCPCS: 36415; 74177; 80053; 80061; 80306; 81001; 81025; 82607; 82746; 83036; 83540; 83550; 83605; 83690; 83735; 84100; 84132; 84145; 84443; 85025; 86705; 86706; 86709; 86803; 87340; 87806; 93005; 94664; 96361; 96365; 96366; 96367; 96372; 96375; 99285; G0378; J1200; J1630; J2270; J2405; J2470; J2550; J3480; J7030; J9999

== ENCOUNTER 2025-01-23 19:27 | Emergency (ER) | payer SELFPAY ==
--- OUTSIDE RECORDS SUMMARY | 2025-01-23 19:35 | XMS_ITS | Patient Health Record ---
Author Organization [facility] Address [address] [place], [place] [id number] Care Team Providers Care Motorized Squad Lieutenant Name Role Phone [place] Primary Care Provider NIC Turner Unavailable [phone] Allergies No Known Allergies Reason For Referral No Information Medications Medication SIG (Take, Route, Fr equency, Duration) Notes Start Date End Date Status Voltaren 1 % 2grams Externally Tw ice a day; Duration: 30 days Active Neurontin 100 MG 1 capsule Orally qhs ; Duration: 30 day(s) Active Naproxen Sodium 220 MG 1 tablet with mariano d or milk as needed Orally every 12 hrs prn Active Depo-Provera 150 MG/ML 1 ml Intramuscula r every 3 months Active Social History Tobacco Use: Social History Observation Description Date Details (start date - stop date) Never Smoker NA - NA Tobacco Use/Smoking Question Answer Notes Are you a nonsmoker Section Notes: Employed Employed Employed Employed Problems Problem Type SNOMED Code ICD Code Onset Dates Problem Status W/U Status Risk Notes Problem 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
--- OUTSIDE RECORDS SUMMARY | 2025-01-23 19:35 | XMS_ITS | Patient Health Record ---
Author Organization [facility] Address [address] [place] [address] Care Team Providers Care Lead Welder Name Role Phone Hay Crespo Primary Care Provider UnavailBETTY Soriano Unavailable [phone] Allergies No Known Allergies Reason For Referral No Information Medications Medication SIG (Take, Route, Frequency, Duration) Notes Start Date End Date Status Retin-A 0.1 % Cream External; Duration: 30 Days Active Almacone Double Strength 400-400-40 MG/5ML Suspension Oral; Duration: 8 Days Activ e DULoxetine HCl 30 MG Capsule Delayed Release Particles 1 capsule Orally Once a day; Duration: 30 day(s) 01/31/2022 Active Omeprazole 40 MG Capsule Delayed Release 1 capsule 30 minutes before morning meal Orally Once a day; Duration: 30 day(s) 01/31/2022 Active Gabapentin 01/31/2022 Active Social History Tobacco Use: Social History Observation Description Date Details (start date - stop date) Never Smoker NA - NA Social History Tobacco Use: Social Info Question Answer Notes Tobacco Use/Smoking Tobacco use: nonsmoker Problems Problem Type SNOMED Code ICD Code Onset Dates Problem Status W/U Status Risk Notes Problem Cervical spondylosis (479682794) Cervical spondylosis (M47.812) Active confirmed Problem Lumbar spondylosis (808956120) Lumbar spondylosis (M47.816) Active confirmed Plan Of Treatment Future Test Test Name Order Date MRI : Cervical without Contrast 02/01/20 MRI : Lumbar without contrast 01/31/2022 Insurance Providers Payer Name Payer Address Payer Phone Subscriber Number Group Number Insured Name Patient Relationship to Insured Coverage Start Date Coverage End Date [facility] MEDICAID COMMUNITY PLAN [address] [address] [place], [place] [id number] [facility] Benson, Anayeli Self - patient is the insured 2 Medical (General) History Medical History History ICD Code asthma arthritis bronchitis circulation problems headaches diabetes irregular heartbeats neuropathy stomach ulcers MRSA Surgical History Surgery Date(Month/Year) endoscopy 2021 wisdom teeth removes 2002 2001 tonsilectomy 1994
[2025-01-23 20:03] VITALS: BP 152/123; PULSE 109; RESP 20; TEMP 36.7; O2SAT 97; BMI 23.6
[2025-01-23 20:45] LABS: Hematocrit 52.8 % (36-47); Hemoglobin 18.50 g/dL (11.27-16.99); Mean Corpuscular HGB Conc 35.0 g/dL (30-55); Mean Corpuscular Hemoglobin 29.7 pg (27-33); Mean Corpuscular Volume 84.9 fl (85-98); Nucleated Red Blood Cells % 0 %; Platelet Count 208 10^3/cmm (157-399); Red Blood Count 6.22 10^6/uL (3.85-5.65); White Blood Count 11.75 10^3/uL (3.29-11.43)
[2025-01-23 20:52] VITALS: BP 152/101; PULSE 92; RESP 16; O2SAT 96
[2025-01-23 20:56] LABS: HCG, Serum Qual Negative (Negative)
[2025-01-23] MEDS: haloperidol inj 5 mg/mL INJ 1 mL IVP (20:57)
[2025-01-23] MEDS: ondansetron 2 mg/ML SDV 2 mL 4 MG IVP (20:57)
--- NOTE | 2025-01-23 21:04 | CTR_ITS ---
PROCEDURE INFORMATION: Exam: CT Abdomen And Pelvis With Contrast Exam date and time: 01/23/2025 9:17 PM Age: 44 years old Clinical indication: Pain and abnormal findings; Abnormal lab test; Elevated wbc; Nausea and vomiting; Abdominal pain; Generalized; Prior surgery; Surgery date: 6+ months; Surgery type: Iud; Diffuse abd pain with n/v. Leukocytosis. ; Additional info: Abdominal pain, vomiting TECHNIQUE: Imaging protocol: Computed tomography of the abdomen and pelvis with contrast. Radiation optimization: All CT scans at this facility use at least one of these dose optimization techniques: automated exposure control; mA and/or kV adjustment per patient size (includes targeted exams where dose is matched to clinical indication); or iterative reconstruction. Contrast material: OMNI 350; Contrast volume: 100 ml; Contrast route: INTRAVENOUS (IV); COMPARISON: CT abdomen pelvis w con* [id number] 09/26/2024 11:29 AM RADIATION DOSE METRICS: Total DLP (mGy-cm): 447.73 FINDINGS: Lungs: Lung bases are clear. Liver: Unremarkable liver. Gallbladder and biliary ducts: Cholelithiasis. No biliary ductal dilation. Pancreas: Unremarkable pancreas. Spleen: Unremarkable spleen. Adrenal glands: Unremarkable adrenal glands. Kidneys and ureters: Symmetrically enhanced kidneys. No hydronephrosis. No urolithiasis. Stomach and bowel: No dilated or inflamed bowel. Colonic diverticulosis without diverticulitis. Appendix: Normal appendix. Intraperitoneal space: No free air. No free fluid. Vasculature: Mild atherosclerotic calcification of the normal-caliber abdominal aorta. Lymph nodes: No enlarged lymph nodes. Urinary bladder: Mild diffuse urinary bladder wall thickening. Nondistended urinary bladder. Reproductive: Intrauterine device is present. No adnexal mass. Bones/joints: No acute osseous abnormality. Soft tissues: Unremarkable soft tissues. CT/CT abdomen pelvis w con* [id number] IMPRESSION: 1. Mild diffuse wall thickening of the urinary bladder, possibly secondary to nondistention, though recommend correlation for infectious cystitis. 2. Otherwise no acute finding.
[2025-01-23 21:08] LABS: Alanine Aminotransferase 21 U/L (0-33); Albumin Level 5.2 g/dL (3.5-5.2); Alkaline Phosphatase 87 U/L (35-105); Anion Gap 17.9 (5-19); Aspartate Amino Transferase 19 U/L (0-32); Blood Urea Nitrogen 18 mg/dL (6-20); Calcium 10.2 mg/dL (8.5-10.5); Carbon Dioxide 34 mmol/L (22-29); Chloride 86 mmol/L (98-107); Globulin 3.0 g/dL (1.3-4.6); Glucose 113 mg/dL (65-115); Lipase 25 U/L (13-60); Osmolality Calculated 283 mOsm/kg (285-295); Sodium 135 mmol/L (136-145); Total Protein 8.2 g/dL (6.6-8.7)
[2025-01-23 21:09] LABS: Lactic Sepsis W/Reflex 1.2 mmol/L (0.5-2.2)
[2025-01-23 21:16] LABS: Potassium 2.9 mmol/L (3.5-5.1)
[2025-01-23] MEDS: iohexol 350 mg/mL 500 mL Btl (per mL) IV (21:19)
[2025-01-23] MEDS: lidocaine 1% 5 ML in potassium chloride premix 100 ML 52.5 ML IV (21:49)
[2025-01-23] MEDS: potassium chloride oral liq 20 mEq/15 mL UDC 40 MEQ PO (21:49)
--- NOTE | 2025-01-23 22:59 | ED_ITS ---
HPI - Nausea/Vomiting/Diarrhea 2 General: Chief complaint: Nausea/Vomiting/Diarrhea Stated complaint: n/v Time Seen by Provider: 01/23/25 20:13 History of Present Illness: Patient is a 44-year-old female presenting with persistent vomiting for approximately two weeks. She reports vomiting almost daily, with only one or two days where she did not vomit. Today, she has vomited 2-3 times. The patient also complains of abdominal pain, predominantly on the left side. She denies diarrhea and reports minimal bowel movements. Patient feels feverish but has not documented an elevated temperature. She reports a history of similar symptoms during her requiring medication and after multiple COVID infections. The patient was hospitalized for similar symptoms approximately two months ago. She currently has no anti-emetic medications at home. She expresses a desire to obtain a formal diagnosis Related Data Home Medications ?Medication ?Instructions ?Recorded ?Confirmed No Known Home Medications 09/26/24 0811/12 Allergies Allergy/AdvReac Type Severity Reaction Status Date / Time No Known Allergies Allergy Verified 01/23/25 20:06 [facility] ED 2 PFSH: Medical History Marijuana dependence Hyperemesis Social History Alcohol intake: former Substance/Drug Use: never Caregiver/support person: Yes Lives independently: Yes Household members: family Housing: House Physical Exam 2 Const: COMMON NORMALS: no acute distress GENERAL APPEARANCE: cooperative; not ill appearing and not frail appearing HENMT: COMMON NORMALS: normocephalic, atraumatic and Normal external nose present HEAD & SCALP: normocephalic and atraumatic FACE & SINUS: normal facial exam and face symmetric NOSE: Normal external nose present Eye: COMMON NORMALS: Equal, round and reactive pupils present and EOMs intact bilaterally PUPIL: Yes Equal, round and reactive pupils present Neck/C-Spine: GENERAL: Yes trachea midline Chest: CHEST: Yes Symmetrical chest wall rise Resp: COMMON NORMALS: normal respiratory effort, No retractions, No use of accessory muscles and clear to auscultation bilaterally AUSCULTATION: clear to auscultation bilaterally Cardio: COMMON NORMALS: regular rate and regular rhythm RATE: regular rate RHYTHM: regular rhythm GI: COMMON NORMALS: Normal to inspection, nondistended, normoactive bowel sounds present and Soft to palpation PALPATION: Yes Soft to palpation and Yes Tenderness to palpation present (GI) Details: LLQ Extremity: COMMON NORMALS: no pedal edema Neuro: BLANCA COMA SCALE: document GCS findings Blanca coma scale eye opening: Spontaneous Mildred coma scale verbal response: Orientated Mildred coma scale motor response: Obey commands Mildred coma scale total score: 15 S ENSORY EXAM: Yes extremities (intact) Psych: COMMON NORMALS: speech normal SPEECH: Yes normal speech Skin: COMMON NORMALS: no rashes or lesions noted GENERAL SKIN EXAM: no rashes or lesions noted Course 2 Vital Signs: Vital signs: Vital Signs Temperature 98.0 F 01/23/25 20:03 Pulse Rate 92 01/23/25 20:52 Respiratory Rate 16 01/23/25 20:52 Blood Pressure 152/101 01/23/25 20:52 Pulse Oximetry 96 01/23/25 20:52 Oxygen Delivery Me thod Room Air 01/23/25 20:52 MDM - Nausea/Vomiting/Diarrhea Medical Decision Making Vitals are stable. She is mildly hypertensive. Tachycardia improved after antiemetic. Hemoglobin is 18.5. White blood cell count is 12. Potassium is 2.9. She was given IV potassium and oral potassium, but refused to drink the oral potassium after 2 sips. Bicarbonate is elevated. Chloride is low. The hypochloremic hypokalemic metabolic alkalosis is consistent with ongoing vomiting. CRP is 3. Lactic acid is 1.2. CT is negative for any acute findings. During the course of her ER stay, and potassium and volume repletion, she began to get anxious. She was offered anxiolytics, but declined, wanting to leave. Importance of potassium and volume repletion was stressed to the patient by the nursing staff. In the end, she decided to sign out AGAINST MEDICAL ADVICE Lab Data 01/23/25 20:37 01/23/25 20:37 Radiology Impressions Abdomen/Pelvis CT 01/23/25 21:04 IMPRESSION: 1. Mild diffuse wall thickening of the urinary bladder, possibly secondary to nondistention, though recommend correlation for infectious cystitis. 2. Otherwise no acute finding. Laboratory Results WBC 11.75 10^3/uL (3.29-11.43) H 01/23/25 20:37 RBC 6.22 10^6/uL (3.85-5.65) H 01/23/25 20:37 Hgb 18.50 g/dL (11.27-16.99) H 01/23/25 20:37 Hct 52.8 % (36-47) H 01/23/25 20:37 MCV 84.9 fl (85-98) L 01/23/25 20:37 MCH 29.7 pg (27-33) 01/23/25 20: MCHC 35.0 g/dL (30-55) 01/23/25 20:37 RDW 12.2 % (12.1-15.1) 01/23/25 20:37 Plt Count 208 10^3/cmm (157-399) 01/23/25 20: MPV 11.2 fL (7.4-10.4) H 01/23/25 20:37 Neut % (Auto) 75.0 % 01/23/25 20: Lymph % (Auto) 16.9 % 01/23/25 20: [place] % (Auto) 7.0 % 01/23/25 20:37 Eos % (Auto) 0.4 % 01/23/25 20:37 Baso % (Auto) 0.3 % 01/23/25 20:37 Neut # (Auto) 8.81 10^3/uL (1.8-7.7) H 01/23/25 20:37 Lymph # (Auto) 2.0 10^3/uL (0.8-4.8) 01/23/25 20:37 [place] # (Auto) 0.8 10^3/uL (0.2-0.9) 01/23/25 20:37 Eos # (Auto) 0.1 10^3/uL (0.0-0.8) 01/23/25 20:37 Baso # (Auto) 0.0 10^3/uL (0.0-0.1) 01/23/25 20: Nucleated RBC % (auto) 0 % 01/23/25 20:37 Nucleated RBCs # 0.0 /100WBC 01/23/25 20:37 Sodium 135 mmol/L (136-145) L 01/23/25 20:37 Potassium 2.9 mmol/L (3.5-5.1) L 01/23/25 20:37 Chloride 86 mmol/L (98-107) L 01/23/25 20:37 Carbon Dioxide 34 mmol/L (22-29) H 01/23/25 20:37 Anion Gap 17.9 (5-19) 01/23/25 20:37 BUN 18 mg/dL (6-20) 01/23/25 20:37 Creatinine 0.7 mg/dL (0.5-0.9) 01/23/25 20:37 GFR Calculation 91.8 mL/min (90-130) 01/23/25 20:37 Glucose 113 mg/dL (65-115) 01/23/25 20:37 Calculated Osmolality 283 mOsm/kg (285-295) L 01/23/25 20:37 Lactic Acid 1.2 mmol/L (0.5-2.2) 01/23/25 20:37 Calcium 10.2 mg/dL (8.5-10.5) 01/23/25 20:37 Total Bilirubin 1.2 mg/dL (0.15-1.2) 01/23/25 20:37 AST 19 U/L (0-32) 01/23/25 20:37 ALT 21 U/L (0-33) 01/23/25 20:37 Alkaline Phosphatase 87 U/L (35-105) 01/23/25 20:37 C-Reactive Protein 3.0 mg/L (0.0-4.9) 01/23/25 20:37 Total Protein 8.2 g/dL (6.6-8.7) 01/23/25 20:37 Albumin 5.2 g/dL (3.5-5.2) 01/23/25 20:37 Globulin 3.0 g/dL (1.3-4.6) 01/23/25 20:37 Lipase 25 U/L (13-60) 01/23/25 20:37 HCG, Qual Negative (Negative) 01/23/25 20:37 All radiology interpretation(s) finalized by discharge Discharge Plan Discharge Patient Disposition: Left Against Medical Advice Clinical Impression: Acute hypokalemia, Dehydration, Nausea and vomiting Prescriptions: No Action No Known Home Medications Print Language: Swedish Coding Level of Care Code ED Computer Systems Support Specialist for Rajinder Acosta
== END 2025-01-23 22:06 | disposition left against medical advice (07) ==
PROVIDERS: Emergency Provider Emergency Medicine
DX: E87.6 Hypokalemia (principal); E86.0 Dehydration; R11.2 Nausea with vomiting, unspecified
CPT/HCPCS: 36415; 74177; 80053; 83605; 83690; 84703; 85025; 86140; 96361; 96374; 96375; 99285; J1630; J2405; J3480; J7030; J9999